=== PATIENT | male | born 1980 | race Hispanic/Latino ===

== ENCOUNTER 2019-10-31 12:01 | Emergency (ER) | payer OTHER ==
[2019-10-31] MEDS ORDERED: Adacel (T-DAP) 0.5 ML SYRINGE ONE (12:11)
== END 2019-10-31 13:03 | disposition home or self-care (01) ==
LOC: NAV ERS 12:01
DX: S61.211A Laceration without foreign body of left index finger without damage to nail, initial encounter (principal); Z87.891 Personal history of nicotine dependence; W26.8XXA Contact with other sharp object(s), not elsewhere classified, initial encounter
CPT/HCPCS: 12001; 90471; 90715

== ENCOUNTER 2025-03-30 09:01 | Outpatient (CLI) | payer BC | END 2025-03-30 09:02 | disposition home or self-care (01) | LOC: NAV RAD 09:01 | PROVIDERS: ATTEND Family Medicine | DX: S80.852A Superficial foreign body, left lower leg, initial encounter (principal) ==